=== PATIENT | male | born 1975 | race Caucasian/White ===

== ENCOUNTER → 2021-12-02 | Outpatient (REF) | payer OTHER ==
[2021-12-02 13:10] LABS: BASO # 0.1 10^3/uL (0.0-0.2); BASO % 1.3 % (0.0-1.0); EOS # 0.2 10^3/uL (0.0-0.5); EOS % 3.2 % (0.0-3.0); HEMATOCRIT 45.3 % (42.0-52.0); HEMOGLOBIN 15.2 g/dl (13.5-17.5); LYMPH # 1.2 10^3/uL (1.5-5.0); MEAN CORPUSCULAR HEMOGLOBIN 32.9 pg (27.0-33.0); MEAN CORPUSCULAR HGB CONC 33.6 g/dl (32.0-36.5); MEAN CORPUSCULAR VOLUME 98.1 fl (80.0-96.0); MONO # 0.6 10^3/uL (0.0-0.8); MONO % 11.8 % (2.0-8.0); NEUTROPHILS # 2.7 10^3/uL (1.5-8.5); NEUTROPHILS % 57.5 % (36.0-66.0); PLATELET COUNT, AUTOMATED 310 10^3/uL (150-450); RED BLOOD COUNT 4.62 10^6/uL (4.30-6.10); WHITE BLOOD COUNT 4.7 10^3/uL (4.0-10.0)
[2021-12-02 15:01] LABS: ALBUMIN 4.1 GM/DL (3.2-5.2); ALT/SGPT 38 U/L (12-78); BILIRUBIN,TOTAL 0.7 MG/DL (0.2-1.0); BLOOD UREA NITROGEN 12 MG/DL (7-18); CALCIUM LEVEL 9.2 MG/DL (8.5-10.1); CARBON DIOXIDE LEVEL 30 MEQ/L (21-32); CHLORIDE LEVEL 105 MEQ/L (98-107); CHOLESTEROL LEVEL 247 MG/DL (<200); CHOLESTEROL RISK RATIO 2.111 (<5); CREATININE FOR GFR 0.91 MG/DL (0.70-1.30); GLOMERULAR FILTRATION RATE > 60.0 (>60); GLUCOSE, FASTING 73 MG/DL (70-100); HDL CHOLESTEROL 117 MG/DL (>40); LDL CHOLESTEROL 103 MG/DL (<100); NON-HDL-C 130 MG/DL; POTASSIUM SERUM 4.5 MEQ/L (3.5-5.1); SODIUM LEVEL 140 MEQ/L (136-145); THYROID STIMULATING HORMONE 0.892 uIU/ML (0.358-3.740); TOTAL 25(OH) VITAMIN D 8.1 NG/ML (30.0-100.0); TOTAL PROTEIN 7.1 GM/DL (6.4-8.2); TRIGLYCERIDES LEVEL 133 MG/DL (<150)
== END ==
LOC: M SFHCADAM 11:18
PROVIDERS: ATTEND Physician Assistant Medical
DX: R03.0 Elevated blood-pressure reading, without diagnosis of hypertension (principal); E78.2 Mixed hyperlipidemia; Z13.0 Encounter for screening for diseases of the blood and blood-forming organs and certain disorders involving the immune mechanism

== ENCOUNTER → 2021-12-18 | Outpatient (CLI) | payer OTHER ==
[~2021-12-18] MED LIST: BENA25CA4 PO; ZYRTTAB8 PO
== END ==
LOC: M LABSMTC 09:18
PROVIDERS: ATTEND Anesthesiology
DX: Z01.812 Encounter for preprocedural laboratory examination (principal); Z20.822 Contact with and (suspected) exposure to COVID-19

== ENCOUNTER 2021-12-23 09:45 | Day surgery (SDC) | payer OTHER ==
[~2021-12-23] VITALS: Ht 175.3 cm; Wt 71.6 kg
[~2021-12-23 09:45] MED LIST changes: +NS 1,000 ML IV ONE
[2021-12-23] MEDS ORDERED: propofoL 200 MG/20 ML VIAL As Ordered ONE (10:46)
[2021-12-23] MEDS ORDERED: LIDOCAINE 2% 100MG/5ML SDV (FOR ANES.) As Ordered ONE (10:47)
[2021-12-23] MEDS ORDERED: ONDANSETRON 4MG/2ML VIAL As Ordered ONE (12:09)
== END 2021-12-23 12:50 | disposition home or self-care (01) ==
LOC: M OPP 09:45
PROVIDERS: ATTEND Surgery
DX: Z12.11 Encounter for screening for malignant neoplasm of colon (principal); Z85.048 Personal history of other malignant neoplasm of rectum, rectosigmoid junction, and anus; D12.2 Benign neoplasm of ascending colon; K57.30 Diverticulosis of large intestine without perforation or abscess without bleeding; F17.220 Nicotine dependence, chewing tobacco, uncomplicated; Z80.3 Family history of malignant neoplasm of breast; Z79.899 Other long term (current) drug therapy
CPT/HCPCS: 45385; 88305; J2405

== ENCOUNTER 2025-08-19 06:58 | Inpatient (IN) | payer OTHER ==
[~2025-08-19] VITALS: Ht 175.3 cm; Wt 69.2 kg
[~2025-08-19 06:58] MED LIST changes: -NS 1,000 ML IV ONE
[2025-08-19 07:54] LABS: PLATELET COUNT, AUTOMATED 366 10^3/uL (150-450)
[2025-08-19 08:26] LABS: AMPHETAMINES LEVEL URINE NEGATIVE (NEGATIVE); BARBITURATES URINE NEGATIVE (NEGATIVE); COCAINE METABOLITE URINE NEGATIVE (NEGATIVE); METHADONE URINE NEGATIVE (NEGATIVE); OPIATES URINE NEGATIVE (NEGATIVE); PHENCYCLIDINE URINE NEGATIVE (NEGATIVE)
[2025-08-19 08:27] LABS: BENZODIAZEPINES URINE NEGATIVE (NEGATIVE)
[2025-08-19 08:29] LABS: ALT/SGPT 35 U/L (7.0-40); AST/SGOT 43 U/L (<34); CALCIUM LEVEL 8.9 MG/DL (8.5-10.1); CARBON DIOXIDE LEVEL 29 MMOL/L (20-31); CHLORIDE LEVEL 104 MMOL/L (98-107); CREATININE FOR GFR 0.78 MG/DL (0.70-1.30); GLOMERULAR FILTRATION RATE > 90.0 (>56); POTASSIUM SERUM 4.0 MMOL/L (3.5-5.1); SALICYLATE LEVEL < 3.0 MG/DL (<30); SODIUM LEVEL 144 MMOL/L (136-145)
[2025-08-19 08:30] LABS: CANNABINOIDS URINE POSITIVE (NEGATIVE)
[2025-08-19 08:47] LABS: ETHYL ALCOHOL (ETHANOL) 0.295 % (0.000-0.010)
[2025-08-19] MEDS ORDERED: HOME MED LIST COMPLETE! XX SCH (15:05)
[2025-08-19] MEDS ORDERED: traZODone 50 MG TAB PO PRN (15:10)
[2025-08-19] MEDS ORDERED: ACETAMINOPHEN 325 MG TAB PO PRN (15:10)
[2025-08-19] MEDS ORDERED: MOM 30 ML SUSPENSION UDC PO PRN (15:10)
[2025-08-19] MEDS ORDERED: MAALOX 30 ML SUSP *UDC PO PRN (15:10)
[2025-08-19] MEDS ORDERED: LORazepam 1 MG TAB PO PRN (15:10)
[2025-08-19] MEDS ORDERED: OLANZapine 5 MG TAB PO PRN (15:10)
[2025-08-19] MEDS ORDERED: HALOPERIDOL 5 MG TAB PO PRN (15:10)
[2025-08-19 17:00] VITALS: BP 156/91
[2025-08-19 17:03] VITALS: BP 156/91; TEMP 99; TEMP 99.9; O2SAT 97
[2025-08-19] MEDS: MULTIVITAMINS/MINERALS THERAP 1 TAB PO SCH (18:59)
[2025-08-19] MEDS: FOLIC ACID 1 MG TAB PO SCH (18:59)
[2025-08-19 20:00] VITALS: BP 154/90
[2025-08-19] MEDS: THIAMINE 100 MG TAB PO SCH (22:03)
[2025-08-20 06:25] VITALS: BP 152/100; TEMP 97.3; O2SAT 98
[2025-08-20 06:30] VITALS: BP 152/98
[2025-08-20] MEDS: NICOTINE 14 MG/24 HR TRANSDERMAL TD SCH (09:12)
[2025-08-20] MEDS: IBUPROFEN 400 MG TAB PO PRN (09:15)
[2025-08-20 14:18] VITALS: BP 142/88
[2025-08-20 16:19] VITALS: BP 142/88; TEMP 98.5; O2SAT 98
[2025-08-20] MEDS: predniSONE 20 MG TAB PO SCH (18:22)
[2025-08-20 22:00] VITALS: BP 146/87
[2025-08-21 06:00] VITALS: BP 152/88
[2025-08-21 06:18] VITALS: BP 152/88; TEMP 97.9; O2SAT 95
== END 2025-08-21 11:59 | disposition home or self-care (01) | DRG 881 ==
LOC: M ED 06:58 → M ED INP 15:10 → M PSY 17:13
PROVIDERS: ADMIT Internal Medicine; ATTEND Internal Medicine
DX: F43.21 Adjustment disorder with depressed mood (principal); R45.851 Suicidal ideations; F10.20 Alcohol dependence, uncomplicated; Z63.5 Disruption of family by separation and divorce; Z59.89 Other problems related to housing and economic circumstances; M10.9 Gout, unspecified